=== PATIENT | male | born 1955 | race Native Hawaiian/Other Pacific Islander ===

== ENCOUNTER 2018-12-22 19:29 | Emergency (ER) | payer OTHER ==
[2018-12-22 19:46] VITALS: TEMP 98.4
[2018-12-22] MEDS ORDERED: DIPH,PERTUS(ACELL)TETVAC-LF 0.5 ML VIAL IM ONE (19:55)
[2018-12-22] MEDS ORDERED: fentaNYL (PF) 50 MCG/ML 2 ML AMP IVP STA (19:55)
[2018-12-22] MEDS ORDERED: LIDOCAINE 1%-EPI 1:100,000 20 ML VIAL SQ STA (19:58)
--- NOTE | 2018-12-22 19:59 | ED ---
General Adult HPI - General Chief complaint: Fall Stated complaint: Hand lac/fall Time Seen by Provider: 12/22/18 19:47 Source: patient Mode of arrival: ambulatory - History of Present Illness Initial comments: Dictation was produced using [employer] dictation software. please excuse any grammatical, word or spelling errors. Chief Complaint: 63-year-old male with past medical history of obesity and hypertension. Chief complaint of left-sided chest pain after fall. History of Present Illness: [id number] male. He was changing a light bulb on a light post. He was on a ladder proximally 6 feet high. He reports that approximately 1 hour prior to arrival he is on a ladder and began to lose his balance. He states he fell forward landing however on his left side. He complains of left-sided chest pain. Patient also complains of some slight pain of the left hip. Patient does not know when his last tetanus was. He did report that he scraped his left chest and left upper extremity on the way down. He does have a laceration to his left palm. The ROS documented in this emergency department record has been reviewed and confirmed by me. Those systems with pertinent positive or negative responses have been documented in the HPI. All other systems are other negative and/or noncontributory. PHYSICAL EXAM: General Impression: Alert and oriented x3, not in acute distress HEENT: Normocephalic atraumatic, extra-ocular movements intact, pupils equal and reactive to light bilaterally, mucous membranes moist. Cardiovascular: Heart regular rate and rhythm, S1&S2 audible, no murmurs, rubs or gallops Chest: Lungs clear to auscultation bilaterally, no rhonchi, no wheeze, no rales Abdomen: Bowel sounds present, abdomen soft, non-tender, non-distended, no organomegaly Musculoskeletal: Pulses present and equal in all extremities, no peripheral edema, tenderness to palpation over the left lateral chest at the mid axillary line Motor: no focal deficits noted Neurological: CN II-XII grossly intact, no focal motor or sensory deficits noted Skin: Intact with no visualized rashes, 1 cm laceration to the left proximal volar hand, superficial abrasion to the left chest and left anterior forearm Psych: Normal affect and mood ED course: 63-year-old male presents with left chest pain after fall. He also has superficial abrasions and laceration to the left hand. Vital signs upon arrival are within acceptable limits. Patient's tetanus is updated. Laceration was repaired at bedside. Laboratory evaluation shows cytosis of 12.7 SECONDARY to stress. Rest of labs are grossly unremarkable. Chest x-ray and wrist x-ray shows no acute processes. Chest abdomen pelvis shows no acute processes. There is however signs of contusion to the left chest. Patient given a Lidoderm patch. Patient clear for discharge. Return parameters di scussed. Patient otherwise advised to follow-up with primary care physician - Related Data Home Medications Medication Instructions Recorded Confirmed Acetaminophen Tab [Tylenol Tab] 500 mg PO ONCE PRN 12/22/18 12/22/18 Hydrochlorothiazide(Unknown Dose) 1 tab PO DAILY 12/22/18 12/22/18 Ibuprofen [Motrin Ib] 200 mg PO ONCE PRN 12/22/18 12/22/18 Losartan(Unknown Dose) 1 tab PO DAILY 12/22/18 12/22/18 Metformin(Unknown Dose) 1 tab PO BID 12/22/18 12/22/18 Allergies Allergy/AdvReac Type Severity Reaction Status Date / Time aspartame Allergy Swelling Verified 12/22/18 20:28 dextrose Allergy Swelling Verified 12/22/18 20:28 Review of Systems ROS Statement: Those systems with pertinent positive or pertinent negative responses have been documented in the HPI. ROS Other: All systems not noted in ROS Statement are negative. Past Medical History Past Medical History: Hypertension Past Surgical History: Orthopedic Surgery Course Vital Signs 12/22/18 19:41 Temperature 98.4 F Pulse Rate 96 Respiratory 16 Rate Blood Pressure 161/112 O2 Sat by Pulse 96 Oximetry Procedures - Laceration Laceration #1 Consent Obtained: verbal consent Indication: laceration Site: hand Description: linear Depth: simple, single layer Anesthetic Used: lidocaine 1%, with epi Anesthesia Technique: local infiltration Pre-repair: wound explored Type of Sutures: nylon Size of Sutures: 4-0 Technique: simple, interrupted Patient Tolerated Procedure: well Medical Decision Making - Lab Data Result diagrams: 12/22/18 20:04 12/22/18 20:04 Lab Results 12/22/18 12/22/18 12/22/18 Range/Units 20:04 20:04 20:04 WBC 12.7 H (3.8-10.6) k/uL RBC 4.96 (4.30-5.90) m/uL Hgb 14.4 (13.0-17.5) gm/dL Hct 44.7 (39.0-53.0) % MCV 90.2 (80.0-100.0) fL MCH 29.0 (25.0-35.0) pg MCHC 32.2 (31.0-37.0) g/dL RDW 13.9 (11.5-15.5) % Plt Count 243 (150-450) k/uL Neutrophils % 80 % Lymphocytes % 11 % Monocytes % 6 % Eosinophils % 2 % Basophils % 0 % Neutrophils # 10.1 H (1.3-7.7) k/uL Lymphocytes # 1.4 (1.0-4.8) k/uL Monocytes # 0.8 (0-1.0) k/uL Eosinophils # 0.2 (0-0.7) k/uL Basophils # 0.0 (0-0.2) k/uL PT 10.2 (9.0-12.0) sec INR 0.9 (<1.2) Sodium 141 (137-145) mmol/L Potassium 4.0 (3.5-5.1) mmol/L Chloride 103 (98-107) mmol/L Carbon Dioxide 31 H (22-30) mmol/L Anion Gap 7 mmol/L BUN 24 H (9-20) mg/dL Creatinine 1.34 H (0.66-1.25) mg/dL Est GFR (CKD-EPI)AfAm 65 (>60 ml/min/1.73 sqM) Est GFR (CKD-EPI)NonAf 56 (>60 ml/min/1.73 sqM) Glucose 108 H (74-99) mg/dL Calcium 9.4 (8.4-10.2) mg/dL Disposition Clinical Impression: Chest wall contusion Disposition: HOME SELF-CARE Condition: Good Instructions (If sedation given, give patient instructions): Fall Prevention for Older Adults (ED) Is patient prescribed a controlled substance at d/c from ED?: No Referrals: None,Stated [Primary Care Provider] - 1-2 days Time of Disposition: 21:18
[2018-12-22 20:11] LABS: Basophils % (A) 0 %; Eosinophils # (A) 0.2 k/uL (0-0.7); Eosinophils % (A) 2 %; HCT 44.7 % (39.0-53.0); HGB 14.4 gm/dL (13.0-17.5); Lymphocytes # (A) 1.4 k/uL (1.0-4.8); Lymphocytes % (A) 11 %; MCHC 32.2 g/dL (31.0-37.0); MCV 90.2 fL (80.0-100.0); Mean Platelet Volume 7.1; Monocytes # (A) 0.8 k/uL (0-1.0); Monocytes % (A) 6 %; Neutrophils # (A) 10.1 k/uL (1.3-7.7); Neutrophils % (A) 80 %; Platelet Count 243 k/uL (150-450); RBC 4.96 m/uL (4.30-5.90); RDW 13.9 % (11.5-15.5); WBC 12.7 k/uL (3.8-10.6)
[2018-12-22 20:16] LABS: INR 0.9 (<1.2); Prothrombin Time 10.2 sec (9.0-12.0)
[2018-12-22 20:21] LABS: Calcium 9.4 mg/dL (8.4-10.2)
--- NOTE | 2018-12-22 20:41 | XR ---
EXAMINATION TYPE: XR Hip Complete LT DATE OF EXAM: 12/22/2018 CLINICAL HISTORY: Left hip pain after fall off of a ladder TECHNIQUE: AP and frogleg views of the left hip are obtained. COMPARISON: None. FINDINGS: There is no acute fracture/dislocation evident in the left hip. The joint space in the le ft hip appears narrowed in a cephalad direction with near [id number] articulation of the femur and acetabulum. There is a cam deformity of the lateral femoral head neck junction. Small marginal osteop hytes are seen of the femur. The overlying soft tissue appears unremarkable. IMPRESSION: There is no acute fracture or dislocation in the left hip. Advanced arthropathy of the l eft hip.
--- NOTE | 2018-12-22 20:42 | XR ---
EXAMINATION TYPE: XR wrist complete LT DATE OF EXAM: 12/22/2018 CLINICAL HISTORY: Left wrist laceration and pain after fall from a ladder TECHNIQUE: Frontal, lateral and oblique images of the left wrist are obtained. Scaphoid view was als o obtained. COMPARISON: None FINDINGS: There is no acute fracture/dislocation evident in the left wrist. The joint spaces in the left wrist appear aligned however there small marginal osteophytes of the first carpometacarpal join t. The overlying soft tissue appears unremarkable. Negative ulnar variance is incidentally noted. IMPRESSION: There is no acute fracture or dislocation in the left wrist.
[2018-12-22] MEDS ORDERED: LIDOCAINE 5% PATCH TOPICAL STA (20:59)
--- NOTE | 2018-12-22 21:06 | CT ---
EXAMINATION TYPE: CT ChestAbdPelvis w con DATE OF EXAM: 12/22/2018 COMPARISON: NONE HISTORY: Fall injury from ladder, left side chest pain CT DLP: 3987.8 mGycm. Automated Exposure Control for Dose Reduction was Utilized. CONTRAST: CT scan of the thorax, abdomen and pelvis is performed with IV Contrast, patient injected with 100 mL of Isovue 300. FINDINGS: LUNGS: 3 mm pulmonary nodule versus atelectasis at the right lung base is seen on image 49. Scattered areas of subsegmental atelectasis are seen within the lungs. No pneumothorax, focal consolidation or pleural effusion. MEDIASTINUM: There are no greater than 1 cm hilar or mediastinal lymph nodes. No pericardial effusi on is seen. OTHER: Bilateral retroareolar probable gynecomastia. LIVER/GB: Hepatic parenchyma is diffusely hypoattenuated in comparison to that of the spleen, most co mmonly seen in hepatic steatosis. This finding limits evaluation for hepatic masses. No gross evidenc e of hepatic mass is seen. No intrahepatic biliary ductal dilatation. No cholelithiasis although the gallbladder is contracted. PANCREAS: No significant abnormality is seen. SPLEEN: No significant abnormality is seen. No splenomegaly or perisplenic fluid collection. ADRENALS: No nodularity or thickening. KIDNEYS: No hydronephrosis or abnormal enhancement. BOWEL: No dilated large or small bowel. GENITAL ORGANS: No gross abnormality seen. LYMPH NODES: No greater than 1cm abdominal or pelvic lymph nodes are appreciated. OSSEOUS STRUCTURES: Moderate multilevel degenerative changes of the spine. OTHER: Cystic structure adjacent to the urinary bladder in the right hemipelvis likely represents a u rinary bladder diverticulum but could be confirmed with CT urogram. Adjacent prominent pelvic sidewal l lymph node is seen measuring 9 mm in short axis. Some fat stranding in the ventral abdominal wall m ay relate to subcutaneous edema or contusion. Stranding over the left chest wall laterally and somewhat posteriorly on series 201 image 8 through 1 1 also represents contusion in the setting of trauma. IMPRESSION: 1. No acute osseous fracture, abnormal fluid collection, or evidence of solid organ injury in the tho rax, abdomen, or pelvis. 2. Soft tissue contusion of the left posterior lateral chest wall grade 3. Subcutaneous edema versus soft tissue contusion of the ventral abdomen. 4. Hepatic steatosis. 5. Right basilar subcentimeter pulmonary nodule versus atelectasis. Follow-up CT thorax could be perf ormed in 12 months.
[2018-12-22 21:54] VITALS: BP 129/79; PULSE 87; RESP 18
== END 2018-12-22 21:54 | disposition home or self-care (01) ==
LOC: EC 19:29
DX: S61.412A Laceration without foreign body of left hand, initial encounter (principal); S20.212A Contusion of left front wall of thorax, initial encounter; Z23 Encounter for immunization; I10 Essential (primary) hypertension; E66.9 Obesity, unspecified; Z68.42 Body mass index [BMI] 45.0-49.9, adult; Z79.84 Long term (current) use of oral hypoglycemic drugs; Z79.899 Other long term (current) drug therapy; Z88.8 Allergy status to other drugs, medicaments and biological substances; W11.XXXA Fall on and from ladder, initial encounter
CPT/HCPCS: 36415; 80048; 85025; 85610; 73502; 73110; 71260; 74177; 90715; 99284; 12002; 90471; Q9967

== ENCOUNTER 2024-09-25 14:46 | Emergency (ER) | payer BC ==
--- NOTE | 2024-09-25 15:54 | ED ---
General Adult HPI - General Chief complaint: Chest Pain Stated complaint: Chest Pain Time Seen by Provider: 09/25/24 15:09 Source: patient Mode of arrival: wheelchair Limitations: no limitations - History of Present Illness Initial comments: Dictation was produced using [employer] dictation software. please excuse any grammatical, word or spelling errors. Chief Complaint: 68-year-old male presents emergency department for sharp chest pain History of Present Illness: Patient 68-year-old male presents to the emergency department for sharp chest pain. His pain began yesterday while during infusion he had his PICC line flushed. With a sharp pain in his chest that was mild. He did not think much of it. He went home and started to notice intermittent episodes of it. This morning he went back for his daily antibiotic infusion started to have that pain again. Patient denies that the pain feels like pressure. Not worse with deep inspiration denies any shortness of breath. No history of heart attacks. No associate diaphoresis or nausea. The ROS documented in this emergency department record has been reviewed and confirmed by me. Those systems with pertinent positive or negative responses have been documented in the HPI. All other systems are other negative and/or noncontributory. - Related Data Home Medications Medication Instructions Recorded Confirmed Apixaban [Eliquis] 5 mg PO BID 09/25/24 09/25/24 Metoprolol Tartrate [Lopressor] 50 mg PO BID 09/25/24 09/25/24 amLODIPine [Norvasc] 5 mg PO HS 09/25/24 09/25/24 hydrALAZINE HCL [Apresoline] 25 mg PO TID 09/25/24 09/25/24 metFORMIN HCL 500 mg PO BID-W/MEALS 09/25/24 09/25/24 Allergies Allergy/AdvReac Type Severity Reaction Status Date / Time aspartame Allergy Swelling Verified 09/25/24 13:52 Review of Systems ROS Statement: Those systems with pertinent positive or pertinent negative responses have been documented in the HPI. ROS Other: All systems not noted in ROS Statement are negative. Past Medical History Past Medical History: Hypertension Additional Past Medical History / Comment(s): SEPSIS STREPTECOCCAL BACTEREMIA. History of Any Multi-Drug Resistant Organisms: None Reported Past Surgical History: Orthopedic Surgery Past Anesthesia/Blood Transfusion Reactions: No Reported Reaction Past Psychological History: Depression Smoking Status: Former smoker General Exam - General Exam Comments Initial Comments: PHYSICAL EXAM: General Impression: Alert and oriented x3, not in acute distress HEENT: Normocephalic atraumatic, extra-ocular movements intact, pupils equal and reactive to light bilaterally, mucous membranes moist. Cardiovascular: Heart regular rate and rhythm Chest: Able to complete full sentences, no retractions, no tachypnea Abdomen: abdomen soft, non-tender, non-distended, no organomegaly Musculoskeletal: Pulses present and equal in all extremities, no peripheral edema Motor: no focal deficits noted Neurological: CN II-XII grossly intact, no focal motor or sensory deficits noted Skin: Intact with no visualized rashes Psych: Normal affect and mood Limitations: no limitations Course Vital Signs 09/25/24 14:52 Temperature 97.3 F L Pulse Rate 64 Respiratory 16 Rate Blood Pressure 156/93 O2 Sat by Pulse 97 Oximetry EKG Findings - EKG Comments: EKG Findings:: My EKG interpretation: Ventricular rate 62, A-fib, QRS 103, QTc 426. No MN prolongation, no QTC prolongation. Isolated T wave inversion with ST depression in lead III. Rest of leads showed no ST changes. Medical Decision Making - Medical Decision Making Was pt. sent in by a medical professional or institution (, PA, HABILITATION ASSISTANT, urgent care, hospital, or senior care...) When possible be specific @ -No Did you speak to anyone other than the patient for history (EMS, parent, family, police, friend...)? What history was obtained from this source @ -No Did you review nursing and triage notes (agree or disagree)? Why? @ -I reviewed and agree with nursing and triage notes Were old charts reviewed (outside hosp., previous admission, EMS record, old EKG, old radiological studies, urgent care reports/EKG's, senior care records)? Report findings @ -No old charts were reviewed Differential Diagnosis (chest pain, altered mental status, abdominal pain women, abdominal pain men, vaginal bleeding, musculoskeletal, weakness, fever, dyspnea, syncope, headache, dizziness, GI bleed, back pain, seizure, CVA, palpatations, mental health)? @ -Differential Chest Pain: Stable Angina, Unstable Angina, STEMI, NSTEMI Aortic Dissection, Pneumothorax, Musculoskeletal, Esophageal Spasm GERD, Cholecystitis, Pancreatitis, Zoster, this is not meant to be an all-inclusive list. EKG interpreted by me (3pts min.). @ -As above X-rays interpreted by me (1pt min.). @ -Chest x-ray is nonacute CT interpreted by me (1pt min.). @ -None done U/S interpreted by me (1pt. min.). @ -None done What testing was considered but not performed or refused? (CT, X-rays, U/S, labs)? Why? @ -None What meds were considered but not given or refused? Why? @ -None Was smoking cessation discussed for >3mins.? @ -No Were there social determinants of health that impacted care today? How? (Homelessness, low income, unemployed, alcoholism, drug addiction, transp ortation, low edu. Level, literacy, decrease access to med. care, group home, rehab)? @ -No Was there de-escalation of care discussed even if they declined (Discuss DNR or withdrawal of care, Hospice)? DNR status @ -No What co-morbidities impacted this encounter? (DM, HTN, Smoking, COPD, CAD, Cancer, CVA, ARF, Chemo, Hep., AIDS, mental health diagnosis, sleep apnea, morbid obesity)? @ -None Was patient admitted / discharged? Hospital course, mention meds given and route, prescriptions, significant lab abnormalities, going to OR and other pertinent info. @ -68-year-old male presents with atypical chest pain. Vital signs stable. EKG is unremarkable. Laboratory evaluation is unremarkable. Patient does not have any history of acute coronary syndrome or cardiac disease. Labs unremarkable. Disposition options were discussed. Patient requesting discharge. Has follow-up with primary care doctor. Did you discuss the management of the patient with other professionals (professionals i.e. , PA, HABILITATION ASSISTANT, lab, RT, psych nurse, manager social, slitting machine feeder, teacher, chief revenue officer, counseling case manager)? Give summary @ -No Was critical care preformed (if so, how long)? @ -No Undiagnosed new problem with uncertain prognosis? @ -No Drug Therapy requiring intensive monitoring for toxicity (Heparin, Nitro, Insulin, Cardizem)? @ -No Were any procedures done? @ -No Diagnosis/symptom? Acute, or Chronic, or Acute on Chronic? Uncomplicated (without systemic symptoms) or Complicated (systemic symptoms)? @ -Atypical chest pain Side effects of treatment? @ -No Exacerbation, Progression, or Severe Exacerbation? @ -No Poses a threat to life or bodily function? How? (Chest pain, [place], [place], pneumonia, PE, COPD, DKA, ARF, appy, cholecystitis, CVA, Diverticulitis, Homicidal, Suicidal, threat to staff... and all critical care pts) @ -No - Lab Data Result diagrams: 09/25/24 16:31 09/25/24 16:31 Lab Results 09/25/24 09/25/24 09/25/24 Range/Units 16:31 16:31 16:31 WBC 7.18 (4.50-10.00) 10*3/uL RBC 4.84 (4.40-5.60) 10*6/uL Hgb 14.1 (13.0-17.0) g/dL Hct 43.6 (39.6-50.0) % MCV 90.1 (80.0-97.0) fL MCH 29.1 (27.0-32.0) pg MCHC 32.3 (32.0-37.0) g/dL Plt Count 181 (140-440) 10*3/uL MPV 9.2 L (9.5-12.2) fL Immature Gran % (Auto) 0.4 % Neutrophils % 63.2 % Lymphocytes % 19.6 % Monocytes % 10.4 % Eosinophils % 5.6 % Basophils % 0.8 % Immature Gran # 0.03 (0.00-0.04) 10*3/uL Neutrophils # 4.53 (1.80-7.70) 10*3/uL Lymphocytes # 1.41 (0.90-5.00) 10*3/uL Monocytes # 0.75 (0.20-1.00) 10*3/uL Eosinophils # 0.40 H (0.04-0.35) 10*3/uL Basophils # 0.06 (0.00-0.10) 10*3/uL PT 10.5 (10.0-12.5) sec INR 0.9 (<1.2) APTT 26.2 (22.0-30.0) sec Sodium 136 L (137-145) mmol/L Potassium 4.5 (3.5-5.1) mmol/L Chloride 99 (98-107) mmol/L Carbon Dioxide 30 (22-30) mmol/L Anion Gap 7 mmol/L BUN 18 (9-20) mg/dL Creatinine 0.86 (0.66-1.25) mg/dL Est GFR (CKD-EPI)AfAm >90 (>60 ml/min/1.73 sqM) Est GFR (CKD-EPI)NonAf 89 (>60 ml/min/1.73 sqM) Glucose 89 (74-99) mg/dL Calcium 9.7 (8.4-10.2) mg/dL Magnesium 2.2 (1.6-2.3) mg/dL Total Bilirubin 0.6 (0.2-1.3) mg/dL AST 28 (17-59) U/L ALT 23 (4-49) U/L Alkaline Phosphatase 69 (38-126) U/L Troponin I (0.000-0.034) ng/mL Total Protein 7.2 (6.3-8.2) g/dL Albumin 4.1 (3.5-5.0) g/dL 09/25/24 Range/Units 16:31 WBC (4.50-10.00) 10*3/uL RBC (4.40-5.60) 10*6/uL Hgb (13.0-17.0) g/dL Hct (39.6-50.0) % MCV (80.0-97.0) fL MCH (27.0-32.0) pg MCHC (32.0-37.0) g/dL Plt Count (140-440) 10*3/uL MPV (9.5-12.2) fL Immature Gran % (Auto) % Neutrophils % % Lymphocytes % % Monocytes % % Eosinophils % % Basophils % % Immature Gran # (0.00-0.04) 10*3/uL Neutrophils # (1.80-7.70) 10*3/uL Lymphocytes # (0.90-5.00) 10*3/uL Monocytes # (0.20-1.00) 10*3/uL Eosinophils # (0.04-0.35) 10*3/uL Basophils # (0.00-0.10) 10*3/uL PT (10.0-12.5) sec INR (<1.2) APTT (22.0-30.0) sec Sodium (137-145) mmol/L Potassium (3.5-5.1) mmol/L Chloride (98-107) mmol/L Carbon Dioxide (22-30) mmol/L Anion Gap mmol/L BUN (9-20) mg/dL Creatinine (0.66-1.25) mg/dL Est GFR (CKD-EPI)AfAm (>60 ml/min/1.73 sqM) Est GFR (CKD-EPI)NonAf (>60 ml/min/1.73 sqM) Glucose (74-99) mg/dL Calcium (8.4-10.2) mg/dL Magnesium (1.6-2.3) mg/dL Total Bilirubin (0.2-1.3) mg/dL AST (17-59) U/L ALT (4-49) U/L Alkaline Phosphatase (38-126) U/L Troponin I <0.012 (0.000-0.034) ng/mL Total Protein (6.3-8.2) g/dL Albumin (3.5-5.0) g/dL Disposition Clinical Impression: Atypical chest pain Disposition: HOME SELF-CARE Condition: Fair Instructions (If sedation given, give patient instructions): Chest Pain (ED) Is patient prescribed a controlled substance at d/c from ED?: No Referrals: Malachi Nash DO [Primary Care Provider] - 1-2 days Time of Disposition: 18:24
[2024-09-25 17:06] LABS: Basophils # (A) 0.06 10*3/uL (0.00-0.10); Basophils % (A) 0.8 %; Eosinophils % (A) 5.6 %; HCT 43.6 % (39.6-50.0); HGB 14.1 g/dL (13.0-17.0); Lymphocytes # (A) 1.41 10*3/uL (0.90-5.00); Lymphocytes % (A) 19.6 %; MCH 29.1 pg (27.0-32.0); MCHC 32.3 g/dL (32.0-37.0); MCV 90.1 fL (80.0-97.0); Mean Platelet Volume 9.2 fL (9.5-12.2); Monocytes # (A) 0.75 10*3/uL (0.20-1.00); Monocytes % (A) 10.4 %; Neutrophils # (A) 4.53 10*3/uL (1.80-7.70); Neutrophils % (A) 63.2 %; Platelet Count 181 10*3/uL (140-440); RBC 4.84 10*6/uL (4.40-5.60); RDW 14.6 % (11.5-14.5); WBC 7.18 10*3/uL (4.50-10.00)
[2024-09-25 17:14] LABS: ALT 23 U/L (4-49); AST 28 U/L (17-59); African American GFR (CKD) >90 (>60 ml/min/1.73 sqM); Albumin 4.1 g/dL (3.5-5.0); Alkaline Phosphatase 69 U/L (38-126); Anion Gap 7 mmol/L; Blood Urea Nitrogen 18 mg/dL (9-20); Calcium 9.7 mg/dL (8.4-10.2); Carbon Dioxide 30 mmol/L (22-30); Chloride 99 mmol/L (98-107); Glucose 89 mg/dL (74-99); Magnesium 2.2 mg/dL (1.6-2.3); Non-African American GFR(CKD) 89 (>60 ml/min/1.73 sqM); Potassium 4.5 mmol/L (3.5-5.1); Sodium 136 mmol/L (137-145); Total Bilirubin 0.6 mg/dL (0.2-1.3); Total Protein 7.2 g/dL (6.3-8.2)
[2024-09-25 17:35] LABS: INR 0.9 (<1.2); Partial Thromboplastin Time 26.2 sec (22.0-30.0); Prothrombin Time 10.5 sec (10.0-12.5)
--- NOTE | 2024-09-25 18:07 | XR ---
EXAMINATION TYPE: XR chest 2V DATE OF EXAM: 09/25/2024 5:58 PM COMPARISON: None. CLINICAL INDICATION: Male, 68 years old with history of Chest Pain, TECHNIQUE: XR chest 2V view(s) obtained. FINDINGS: The heart size is normal. The pulmonary vasculature is normal. The lungs are clear. IMPRESSION: 1. No acute pulmonary process. [facility], Workstation: [facility], 09/25/2024 6:04 PM
[2024-09-25 18:33] VITALS: BP 153/102; PULSE 71; RESP 19; TEMP 97.9
== END 2024-09-25 18:45 | disposition home or self-care (01) ==
LOC: EC 14:46
DX: R07.89 Other chest pain (principal); I48.91 Unspecified atrial fibrillation; Z88.8 Allergy status to other drugs, medicaments and biological substances; Z87.891 Personal history of nicotine dependence
CPT/HCPCS: 36415; 71046; 80053; 83735; 84484; 85025; 85610; 85730; 93005; 99285